=== PATIENT | female | born 1955 | race Caucasian/White ===

== ENCOUNTER 2019-07-12 01:11 | Emergency (ER) | payer MEDICAID, OTHER ==
[~2019-07-12] VITALS: Ht 170.2 cm; Wt 69.1 kg
--- NOTE | 2019-07-12 01:31 | NUR ---
pt states she takes 600 mg ibuprofen BID every day for chronic pain
--- NOTE | 2019-07-12 01:33 | NUR ---
Pt also states that she does not take any medications for her diabetes and that her blood sugar runs between 250-350.
[2019-07-12] MEDS ORDERED: metoprolol tartrate 50mg tablet PO ONE (01:55)
[2019-07-12] MEDS ORDERED: insulin regular, human 10 units/0.1 ml syringe SQ ONE (02:05)
[2019-07-12] MEDS ORDERED: GLIP5TAB13 PO (02:08)
[2019-07-12] MEDS ORDERED: insulin regular, human U-100 3ml vial - multi-dose SQ ONE (02:10)
[2019-07-12 03:01] VITALS: BP 154/77
== END 2019-07-12 03:15 | disposition home or self-care (01) ==
LOC: ER 01:12
DX: R04.0 Epistaxis (principal); E11.65 Type 2 diabetes mellitus with hyperglycemia; I11.9 Hypertensive heart disease without heart failure; Z88.5 Allergy status to narcotic agent; Z79.899 Other long term (current) drug therapy
CPT/HCPCS: 82948; 96372; 99283; J1815

== ENCOUNTER 2019-08-29 20:05 | Emergency (ER) | payer MEDICAID, OTHER ==
[~2019-08-29] VITALS: Ht 170.2 cm; Wt 72.0 kg
[~2019-08-29 20:05] MED LIST: GLIP5TAB13 PO
[2019-08-29 20:10] VITALS: BP 142/88
[2019-08-29] MEDS ORDERED: ibuprofen 200mg tablet PO ONE (20:25)
[2019-08-29] MEDS ORDERED: HYDROcodone/acetaminophen 5mg/325mg tablet PO ONE (21:20)
[2019-08-29] MEDS ORDERED: HYDR-3965 PO (21:20)
== END 2019-08-29 21:37 | disposition home or self-care (01) ==
LOC: ER 20:06
DX: S42.291A Other displaced fracture of upper end of right humerus, initial encounter for closed fracture (principal); I10 Essential (primary) hypertension; E11.9 Type 2 diabetes mellitus without complications; Z88.5 Allergy status to narcotic agent; Z79.899 Other long term (current) drug therapy; W19.XXXA Unspecified fall, initial encounter; Y93.89 Activity, other specified; Y92.89 Other specified places as the place of occurrence of the external cause; Y99.8 Other external cause status
CPT/HCPCS: 29105; 73060; 73110; 99284

== ENCOUNTER 2022-03-03 13:11 | Emergency (ER) | payer MEDICARE, MEDICAID ==
[~2022-03-03] VITALS: Ht 172.7 cm; Wt 45.0 kg
[~2022-03-03 13:11] MED LIST changes: +ASPI-1 PO; +BENA10TA74 PO; +CHOL400T57 PO; +CINNAMON; +DOCU-148 PO; +ERTU15TA PO; -GLIP5TAB13 PO; +HYDR-3965 PO; +IBUP-1985 PO; +MAGNESIUM PO; +ONQPUMP ADDCANAL; +VITA-268 PO
[2022-03-03 14:06] VITALS: BP 141/72
[2022-03-03] MEDS ORDERED: amox tr/potassium clavulanate 875/125mg TAB PO ONE (16:25)
[2022-03-03] MEDS ORDERED: bacitracin 15gm ointment TP ONE (16:25)
[2022-03-03] MEDS ORDERED: AMOX-117 PO (16:27)
== END 2022-03-03 16:55 | disposition home or self-care (01) ==
LOC: ER 13:12
DX: S61.452A Open bite of left hand, initial encounter (principal); I10 Essential (primary) hypertension; E11.9 Type 2 diabetes mellitus without complications; Z91.041 Radiographic dye allergy status; Z91.040 Latex allergy status; Z88.5 Allergy status to narcotic agent; W55.01XA Bitten by cat, initial encounter; Y93.89 Activity, other specified; Y92.89 Other specified places as the place of occurrence of the external cause; Y99.8 Other external cause status
CPT/HCPCS: 99283; A6449